=== PATIENT | male | born 1950 | race Caucasian/White ===

== ENCOUNTER 2021-11-09 21:23 | Emergency (ER) | payer MEDICARE, OTHER ==
[2021-11-09 22:14] LABS: ANION GAP 14.1 mEq/L (7-13)
[2021-11-09] MEDS ORDERED: Sodium Chloride 0.9% 1,000 ML IV ONE (23:01)
[2021-11-09] MEDS: Sodium Chloride 0.9% 10 ML Syringe FLUSH PRN ×2 (23:06→23:23)
[2021-11-09] MEDS ORDERED: Labetalol 20 MG/4 ML Syringe IVPUSH ONE ×2 (23:16→23:59)
[2021-11-09] MEDS ORDERED: methylPREDNISolone Sodium Succinate 125 MG/2 ML SDV IVPUSH ONE (23:34)
[2021-11-10] MEDS ORDERED: Labetalol 20 MG/4 ML Syringe IVPUSH ONE (00:06)
== END 2021-11-10 01:15 ==
LOC: EDSEX → DL.ED 21:23 → MERGE 21:23 → DL.ED 11-10 01:15
DX: R04.2 Hemoptysis (principal); R09.02 Hypoxemia; R05.9 Cough, unspecified; Z79.899 Other long term (current) drug therapy; Z20.822 Contact with and (suspected) exposure to COVID-19
CPT/HCPCS: 36415; 71250; 80053; 83605; 83880; 84484; 85025; 85610; 86140; 87040; 93005; 93010; 96361; 96374; 96375; 96376; 99284; 99285; J2930; J3490; J7030; U0002